=== PATIENT | female | born 1970 | race Two or more races ===

== ENCOUNTER 2025-07-23 14:41 | Inpatient (IN) | payer MEDICAID, OTHER ==
[~2025-07-23] VITALS: Ht 165.1 cm; Wt 78.5 kg
[2025-07-23 18:16] LABS: Hemoglobin 11.2 g/dL (12.2-16.2); Mean Corpuscular Hemoglobin 21.0 pg (28.0-32.0); Nucleated Red Blood Cells % 0.0 %
[2025-07-23 18:17] LABS: Hematocrit 36.7 % (36.0-46.0); Mean Corpuscular Volume 68.6 fL (80.0-100.0)
[2025-07-23 18:25] LABS: Chloride 106 mmol/L (98-107); Potassium 4.2 mmol/L (3.5-5.1); Sodium 142 mmol/L (136-145)
[2025-07-23 18:26] LABS: Anion Gap 11 (5-15); Calcium 10.0 mg/dL (8.7-10.4); Carbon Dioxide 25 mmol/L (20-31)
[2025-07-23 18:31] LABS: BUN/Creatinine Ratio 19.4 (10.0-20.0); Blood Urea Nitrogen 14 mg/dL (9-23)
[2025-07-23 18:34] LABS: Glucose 147 mg/dL (74-106)
--- NOTE | 2025-07-23 18:53 | DVH ---
CHEST RADIOGRAPH Indication: cp Technique: Single frontal view of the chest was obtained Comparison: None FINDINGS: Lines and Tubes: None Lungs: No focal consolidation. Pleura: No effusion. No pneumothorax. Cardiomediastinal contours: Unremarkable Bones: No acute osseous abnormality. IMPRESSION: 1. No acute cardiopulmonary disease.
[2025-07-24] VITALS (7 sets, daily range): BP systolic 121–130; BP diastolic 50–81; PULSE 81–92; RESP 16–18; TEMP 97.9–98.4; O2SAT 99–100
--- NOTE | 2025-07-24 00:12 | ED.PDOC ---
HPI Comments 54-year-old female who came to ER for chest pains. Patient has history of type 2 diabetes. States she woke up this morning with right-sided chest pains, constant, persistent, aching, radiating to her neck. Persistence of chest pains prompted patient to come to the ER. 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 Family History Family History: Reviewed,noncontributory to illness Social History Smoker: Non-Smoker Alcohol: Denies ETOH Use Drugs: Denies Drug Use Lives In: Home Constitutional: denies: chills, diaphoresis, fatigue, fever, malaise, sweats, weakness, others EENTM: denies: blurred vision, double vision, ear bleeding, ear discharge, ear drainage, ear pain, ear ringing, eye pain, eye redness, hearing loss, mouth pain, mouth swelling, nasal discharge, nose bleeding, nose congestion, nose pain, photophobia, tearing, throat pain, throat swelling, voice changes, others Respiratory: denies: cough, hemoptysis, orthopnea, SOB at rest, shortness of breath, SOB with excertion, stridor, wheezing, others Cardiovascular: reports: chest pain; denies: dizzy spells, diaphoresis, Dyspnea on exertion, edema, irregular heart beat, left arm pain, lightheadedness, palpitations, PND, syncope, others Gastrointestinal: denies: abdomen distended, abdominal pain, blood streaked bowels, constipated, diarrhea, dysphagia, difficulty swallowing, hematemesis, melena, nausea, poor appetite, poor fluid intake, rectal bleeding, rectal pain, vomiting, others Genitourinary: denies: abnormal vagina bleeding, burning, dyspareunia, dysuria, flank pain, frequency, hematuria, incontinence, pain, , vagina discharge, urgency, others Neurological: denies: dizziness, fainting, headache, left sided numbness, left sided weakness, numbness, paresthesia, pre-existing deficit, right sided numbness, right sided weakness, seizure, speech problems, tingling, tremors, weakness, others Musculoskeletal: denies: back pain, gout, joint pain, joint swelling, muscle pain, muscle stiffness, neck pain, others Integumetry: denies: bruises, change in color, change in hair/nails, dryness, laceration, lesions, lumps, rash, wounds, others Allergic/Immunocompromised: denies: Difficulty Healing, Frequent Infections, Hives, Itching, others Hematologic/Lymphatic: denies: anemia, blood clots, easy bleeding, easy bruising, swollen glands, others Endocrine: denies: excessive hunger, excessive sweating, excessive thirst, excessive urination, flushing, intolerance to cold, intolerance to heat, unexplained weight gain, unexplained weight loss, others Psychiatric: denies: anxiety, bipolar disorder, depression, hopeless, panic disorder, schizophrenia, sleepless, suicidal, others Physical Exam General Appearance: No Apparent Distress, Normal HEENT: Normal ENT Inspection, Pharynx Normal, TMs Normal Neck: Full Range of Motion, Non-Tender, Normal, Normal Inspection Respiratory: Chest Non-Tender, Lungs Clear, No Accessory Muscle Use, No Respiratory Distress, Normal Breath Sounds Cardiovascular: No Edema, No JVD, No Murmur, No Gallop, Normal Peripheral Pulses, Regular Rate/Rhythm Breast Exam: Deferred Gastrointestinal: No Organomegaly, Non Tender, No Pulsatile Mass, Normal Bowel Sounds, Soft Genitalia: Deferred Pelvic: Deferred Rectal: Deferred Extremities: No calf tenderness, Normal capillary refill, Normal inspection, Normal range of motion, Non-tender, No pedal edema Musculoskeletal : Apperance: Normal Neurologic: Alert, rn otolaryngology II-XII nml as Tested, No Motor Deficits, Normal Affect, Normal Mood, No Sensory Deficits Cerebellar Function: Normal Reflexes: Normal Skin: Dry, Normal Color, Warm Lymphatic: No Adenopathy Was a procedure done? Was a procedure done?: No CP Differential Dx Differential Diagnosis: Angina, Anxiety / Panic Attack Differential Diagnosis: Angina, Chest Wall Pain, Costochondritis, Esophageal reflux/spasm, Gastritis, Myocardial Infarction X-Ray, Labs, Meds, VS Vital Signs Date Time Temp Pulse Resp B/P (MAP) Pulse Ox O2 Delivery O2 Flow Rate FiO2 07/23/25 14:48 83 07/23/25 14:45 98.4 85 18 102/41 99 98.4 Lab Test 07/23/25 19:07 07/23/25 18:05 07/23/25 15:07 Range/Units Troponin I High Sensitivity < 3 L < 3 L </=34 ng/L White Blood Count 8.1 4.4-10.8 10^3/uL Red Blood Count 5.34 H 4.0-5.20 10^6/uL Hemoglobin 11.2 L 12.2-16.2 g/dL Hematocrit 36.7 36.0-46.0 % Mean Corpuscular Volume 68.6 L 80.0-100.0 fL Mean Corpuscular Hemoglobin 21.0 L 28.0-32.0 pg Mean Corpuscular Hemoglobin Concent 30.6 L 32.0-36.0 g/dL Red Cell Distribution Width 17.0 H 11.8-14.3 % Platelet Count 351 140-450 10^3/uL Mean Platelet Volume 8.6 6.9-10.8 fL Neutrophils (%) (Auto) 70.4 37.0-80.0 % Lymphocytes (%) (Auto) 21.3 10.0-50.0 % Monocytes (%) (Auto) 6.0 0.0-12.0 % Eosinophils (%) (Auto) 1.5 0.0-7.0 % Basophils (%) (Auto) 0.8 0.0-2.0 % Neutrophils # (Auto) 5.7 1.6-8.6 10 ^3/uL Lymphocytes # (Auto) 1.7 0.4-5.4 10 ^3/uL Monocytes # (Auto) 0.5 0-1.3 10 ^3/uL Eosinophils # (Auto) 0.1 0-0.8 10 ^3/uL Basophils # (Auto) 0.1 0-0.2 10 ^3/uL Nucleated Red Blood Cells 0.0 % Sodium Level 142 136-145 mmol/L Potassium Level 4.2 3.5-5.1 mmol/L Chloride Level 106 98-107 mmol/L Carbon Dioxide Level 25 20-31 mmol/L Anion Gap 11 5-15 Blood Urea Nitrogen 14 9-23 mg/dL Creatinine 0.72 0.550-1.02 mg/dL Glomerular Filtration Rate Calc 100 >90 mL/min BUN/Creatinine Ratio 19.4 10.0-20.0 Serum Glucose 147 H 74-106 mg/dL Calcium Level 10.0 8.7-10.4 mg/dL POC Glucose 202 H 70-106 mg/dl Time of 1ST Reevaluation: 00:09 Reevaluation 1ST: Unchanged Patient Education/Counseling: Diagnosis, Treatment Family Education/Counseling: No Family Present Comments This is a diabetic patient with history of hypertension who was woken up by right-sided chest pain. Patient has never had chest pain before she also reports the pain radiates to the the posterolateral side of the right neck. Cardiac workup is negative however I am suspicious for unstable angina. Patient will be admitted for further cardiac workup SEPSIS Sepsis Screen Date sepsis recognized/suspect: Jul 23, 2025 Time Sepsis recognized/suspect: 1455 Recent Procedure: No On Antibiotic Therapy: No Respiratory Rate >20: No Heart Rate >90: No Temp<36 C (96.8 F) or >38.3 C: No SBP <90 or MAP <65 mmHG: No New Acute Mental Status Change: No Is the patient on CPAP, BIPAP,: No Physician Orders Electrocardigram (07/23/25 17:17) Chest Portable (07/23/25 17:58) Electrocardigram (07/23/25 17:58) Urinalysis (07/23/25 17:58) Electrocardigram (07/23/25 18:58) Electrocardigram (07/23/25 20:58) Vital Signs Date Time Temp Pulse Resp B/P (MAP) Pulse Ox O2 Delivery O2 Flow Rate FiO2 07/23/25 14:48 83 07/23/25 14:45 98.4 85 18 102/41 99 98.4 Laboratory Tests Test 07/23/25 18:05 White Blood Count 8.1 10^3/uL (4.4-10.8) Departure 1 Departure Time of Disposition: 00:17 Impression: Primary Impression: Unstable angina Disposition: 09 ADMITTED INPATIENT Admit to: Tele Condition: Serious Discharged With: Self Critical Care Note Critical Care Time?: Yes (55 min-critical care time only) Critical care comment: Due to concerns for patients condition deteriorating, the care required my highest level of attention and readiness to intervene. I assessed the patient, reviewed the medical records, ordered the appropriate tests and treatments, then reassessed for results and responsiveness. I communicated with medical personnel and consultants and formulated a plan of care. Total critical care time excludes any procedures Stability Stability form required: No Heart Score Heart Score: Heart Score Response (Comments) Value History Slightly Suspicious 0 EKG Repolarization Disturb 1 Age 45-64 1 Risk Factors 1 or 2 risk factors 1 Troponin Normal limit 0 Total 3 I personally scribed for YOEL VILLALPANDO MD ([email or web address]) on 07/24/25 at 00:12. Electronically submitted by Yaakov Barraza ([email or web address]). YOEL VILLALPANDO MD Jul 24, 2025 00:12
[2025-07-24 05:43] LABS: Urine Protein, UAD Negative (Negative)
[2025-07-24] MEDS ORDERED: DEXTROSE (50%) 50ML SYRG IV PRN ×2 (07:30→15:15)
[2025-07-24] MEDS ORDERED: PROP1TAB51 PO (09:21)
[2025-07-24] MEDS ORDERED: METF-370 PO (09:21)
[2025-07-24] MEDS ORDERED: FAMO-12 PO (09:21)
[2025-07-24] MEDS ORDERED: DAPA1TAB4 PO (09:21)
[2025-07-24] MEDS ORDERED: ATOR-507 PO (09:21)
[2025-07-24] MEDS: ATORVASTATIN 20 MG TAB PO ONE (09:27)
--- NOTE | 2025-07-24 11:15 | DVHSR ---
APPROVED REPORT EXAM: Two-dimensional and M-mode echocardiogram with Doppler and color Doppler. Blood Pressure: 124/66 mmHg INDICATION Chest Pain RISK FACTORS Height: 5'5", Weight: 180 DIMENSIONS LVDd 4.9 (3.8-5.7cm) LA (2D) 3.5 (1.9-4.0cm) Aortic Root 3.4 (2.0-3.7cm) LVDs 2.9 (2.5-4.0cm) LA (MM) (1.9-4.0cm) Aortic Cusp Exc 1.8 (1.5-2.0cm) EF (%) 60.0 (55-70%) Rt. Atrium 3.8 (1.9-4.0cm) Asc. Aorta cm IVSd 0.8 (0.7-1.1cm) RV (D) 3.7 (1.8-2.4cm) PWd 0.7 (0.7-1.1cm) Mitral Valve Mitral Mitral Stenosis E wave 1.04m/s MV Mean GR. mmHg A wave 1.13m/s MV Peak GR. mmHg E/A ratio 0.9 2D MVA cm2 DECEL Time 250ms PRESS 1/2 Time ms Aortic Valve Aortic Valve Aortic Stenosis V1 1.23m/s AO Mean GR. 6mmHg V2 1.90m/s AO Peak GR. 14mmHg LVOT Diameter 1.8 (1.8-2.4cm) Doppler KENDALL 1.65cm2 Pulmonic Valve V2 1.18m/s Tricuspid Valve TR Velocity 2.71m/s RVSP 27mmHg Conclusion 1)Normal right and left ventricule systolic function with estimated LV ejection fraction of 60%. normal LV wall motion 2)Trace mitral regurgitation 3)Mild tricuspid regrgitation 4)Elevated right ventricular systolic [id number] mmHg suggestive of possible pulmonary HTN
--- NOTE | 2025-07-24 12:14 | DVHINCON2 ---
Date Seen: Jul 24, 2025 Referring Physician Laura Reason for Consultation Chest Pain History of Present Illness 54-year-old female with PMH for HTN, diabetes, HLD, previous smoker, presents to the hospital with chest pain. Patient states she was woken by sharp pain to her right side, radiating up her right neck right arm ache at times pressure in nature, movement made pain worse, was unsure if possible musculoskeletal or something else going on in therefore decided come to the hospital. Upon evaluation in the ER patient found to have negative troponin x2, EKG reviewed and shows sinus rhythm at 83 beats per minute, no acute ST and T-wave abnormality noted. Patient is worried about any type of chest pain has father in his 40s from heart attack as well as sibling also has cardiac issues at a younger age. 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 Allergies: Coded Allergies: NO KNOWN ALLERGIES (Unverified , 07/23/25) Home Meds Reported Medications Propranolol HCl (Propranolol Hydrochloride) 10 Mg Tab, 10 MG PO BID, TAB 07/24/25 Famotidine (Famotidine) 20 Mg Tab, 40 MG PO DAILY for 30 Days, MG 07/24/25 Atorvastatin Calcium (Lipitor) 40 Mg Tab, 1 TAB PO QPM, #90 TAB 1 Refill 07/24/25 Dapagliflozin Propanediol (Farxiga) 10 Mg Tab, 5 MG PO DAILY, TAB 07/24/25 Metformin Hydrochloride (Metformin Hcl) 500 Mg Tab, 1000 MG PO BID for 30 Days, MG 07/24/25 Current Medications Current Medications Medications (Trade) Dose Ordered Sig/Nigel Route PRN Reason Start Time Stop Time Status Last Admin Aspirin 81 mg DAILY PO 07/25/25 10:00 Atorvastatin Calcium (Lipitor) 80 mg HS PO 07/25/25 22:00 Diagnostic Test (Pha) (Accu-Chek Comfort Curve T) 1 strip Q6HR 07/24/25 12:00 Insulin Human Regular (InsuLIN R) Q6HR SC 07/24/25 12:00 Dextrose 50 ml UD PRN IV Blood Sugar LESS THAN 60 07/24/25 07:30 Review of Systems Constitutional: No: Fever, Chills, Sweats, Weakness, Malaise, Other Eyes: No: Pain, Vision change, Conjunctivae inflammation, Eyelid inflammation, Other, Redness ENT: No: Ear pain, Ear discharge, Nose pain, Nose discharge, Nose congestion, Mouth pain, Mouth swelling, Throat pain, Throat swelling, Other Respiratory: No: Cough, Dry, Shortness of breath, SOB with exertion, Wheezing, Hemoptysis, Pleuritic Pain, Sputum, Wheezing, Other Cardiovascular: ; No: Chest Pain Palpitations, Orthopnea, Paroxysmal Noc. Dyspnea, Edema, Lt Headedness, Other Gastrointestinal: No: Nausea, Vomiting, Abdominal Pain, Diarrhea, Constipation, Melena, Hematochezia, Other Genitourinary: No Dysuria, No Frequency, No Incontinence, No Hematuria, No Retention, No Other Musculoskeletal: neck pain; No: other, shoulder pain, arm pain, back pain, hand pain, leg pain, foot pain Skin: No: Rash, Lesions, Jaundice, Bruising, Other Neurological: Other (Dizziness, headache.); No: Weakness, Numbness, Incoordination, Change in speech, Confusion, Seizures Vital Signs Vital Signs Date Time Temp Pulse Resp B/P (MAP) Pulse Ox O2 Delivery O2 Flow Rate FiO2 07/24/25 08:11 Room Air* 0 21 07/24/25 08:11 97.9 87 18 121/50 (73) 100 97.9 Physical Exam General appearance: Patient is well-developed, well-nourished, in no acute distress. HEENT: Exam shows: Normocephalic, atraumatic, PERRLA, EOMI Neck: Supple, no bruits Chest: Equal chest excursion bilaterally. Breath sounds normal-no rales or wheezes. Heart: Rhythm: Regular rate; no murmur or gallop Abdomen: Exam shows: Soft, nontender, nondistended Musculoskeletal: No clubbing, no cyanosis, no lower extremity edema Dermatology: Skin warm, moist. Neurological: Exam shows: Alert and oriented x4, normal speech Available prior records, labs, EKG, rhythm strips reviewed and interpreted Labs/Diagnostic Data Labs Test 07/24/25 07:40 07/24/25 05:21 07/23/25 19:07 07/23/25 18:05 Range/Units Thyroid Stimulating Hormone (TSH) 0.03 L 0.55-4.78 uIU/mL Urine Color Light-yellow Yellow Urine Clarity Clear Clear Urine pH 5.5 5.0-9.0 Urine Specific [place] 1.044 H 1.001-1.035 Urine Protein Negative Negative Urine Ketones 2+ H Negative Urine Blood Negative Negative /uL Urine Nitrite 2+ H Negative Urine Bilirubin Negative Negative Urine Urobilinogen Normal Negative mg/dL Urine Leukocyte Esterase Negative Negative /uL Urine RBC 1 0 - 4 /hpf Urine Microscopic WBC 4 0-5 /HPF Urine Squamous Epithelial Cells Few <5 /hpf Urine Bacteria Few H None Seen /hpf Urine Glucose 4+ H Normal mg/dL Troponin I High Sensitivity < 3 L </=34 ng/L White Blood Count 8.1 4.4-10.8 10^3/uL Red Blood Count 5.34 H 4.0-5.20 10^6/uL Hemoglobin 11.2 L 12.2-16.2 g/dL Hematocrit 36.7 36.0-46.0 % Mean Corpuscular Volume 68.6 L 80.0-100.0 fL Mean Corpuscular Hemoglobin 21.0 L 28.0-32.0 pg Mean Corpuscular Hemoglobin Concent 30.6 L 32.0-36.0 g/dL Red Cell Distribution Width 17.0 H 11.8-14.3 % Platelet Count 351 140-450 10^3/uL Mean Platelet Volume 8.6 6.9-10.8 fL Neutrophils (%) (Auto) 70.4 37.0-80.0 % Lymphocytes (%) (Auto) 21.3 10.0-50.0 % Monocytes (%) (Auto) 6.0 0.0-12.0 % Eosinophils (%) (Auto) 1.5 0.0-7.0 % Basophils (%) (Auto) 0.8 0.0-2.0 % Neutrophils # (Auto) 5.7 1.6-8.6 10 ^3/uL Lymphocytes # (Auto) 1.7 0.4-5.4 10 ^3/uL Monocytes # (Auto) 0.5 0-1.3 10 ^3/uL Eosinophils # (Auto) 0.1 0-0.8 10 ^3/uL Basophils # (Auto) 0.1 0-0.2 10 ^3/uL Nucleated Red Blood Cells 0.0 % Sodium Level 142 136-145 mmol/L Potassium Level 4.2 3.5-5.1 mmol/L Chloride Level 106 98-107 mmol/L Carbon Dioxide Level 25 20-31 mmol/L Anion Gap 11 5-15 Blood Urea Nitrogen 14 9-23 mg/dL Creatinine 0.72 0.550-1.02 mg/dL Glomerular Filtration Rate Calc 100 >90 mL/min BUN/Creatinine Ratio 19.4 10.0-20.0 Serum Glucose 147 H 74-106 mg/dL Calcium Level 10.0 8.7-10.4 mg/dL Test 07/23/25 15:07 Range/Units POC Glucose 202 H 70-106 mg/dl Assessment * Chest Pain- Atypical. Troponins negative. EKG negative for acute ischemic changes. Continue aspirin and statin. Follow up ECHO with normal EF. Heart score 4. Plan for Stress test in am. NPO after midnight. * HTN - stable, continue monitoring. may restart home meds if needed. * HLD - statin * Diabetes - per primary team * Palpitations - On propranolol at home. Continue tele monitoring. Plan for outpatient cardiology follow up for event monitoring. Case Discussed with Dr Velez. CP atypical. EKG negative for acute ischemic changes. Normal EF on ECHO. Given heart score of 4 and significant family cardiac history patient to undergo stress test in am. NPO after midnight. Critical care, time spent: 38 minutes This medical document was created using an electronic medical record system with voice recognition software and computerized dictation system. Although this document has been carefully reviewed, there might still be some phonetic and typographical errors. Occasional wrong-word or ``sound-alike substitutions may have occurred due to the inherent limitations of voice recognition software. These areas are purely typographical due to imperfections of the software programs and do not reflect any compromise in the patient's medical care. Please read the chart carefully and recognize, using context, where these substitutions have occurred. Thank you for allowing me to participate in the management of this patient. The treatment plan was discussed with and agreed upon by patient/family including requesting consultants and ordering of imaging/procedures. Plan discussed with: Patient NYHA Physical activity limitations: Class1(None)absent sob, Date of Service: Jul 24, 2025 Billing Provider: HUGH SORIANO [facility] Cardiology Common Codes: 57767-[id number] INP/OBS CARE (High), [id number] CARE 30-[address] [facility] Jul 24, 2025 12:14
[2025-07-24] MEDS: ACCU-CHEK COMFORT CURVE STRIP VI SCH ×2 (12:31→18:18)
[2025-07-24] MEDS: InsuLIN REG 1unit/0.01ml Soln (100units/ml) SC SCH ×2 (12:33→18:19)
--- NOTE | 2025-07-24 14:12 | DVHPN2 ---
Reviewed: Care Plan, H&P, Labs, Medications, Previous Orders, Radiology Changes from previous H/P or p: No Changes General: Per HPI Objective Vitals Vital Signs Date Time Temp Pulse Resp B/P (MAP) Pulse Ox O2 Delivery O2 Flow Rate FiO2 07/24/25 08:11 Room Air* 0 21 07/24/25 08:11 97.9 87 18 121/50 (73) 100 97.9 Medications Current Medications Medications Dose Ordered Sig/Nigel Route Start Time Stop Time Status Last Admin Dose Admin Aspirin 81 mg DAILY PO 07/25/25 10:00 Atorvastatin Calcium 80 mg HS PO 07/25/25 22:00 Diagnostic Test (Pha) 1 strip Q6HR 07/24/25 12:00 07/24/25 12:31 1 STRIP Insulin Human Regular Q6HR SC 07/24/25 12:00 07/24/25 12:33 4 UNITS Dextrose 50 ml UD PRN IV 07/24/25 07:30 Laboratory Results Laboratory Tests 07/23/25 18:05 Chemistry Test 07/23/25 18:05 Calcium Level 10.0 mg/dL (8.7-10.4) HgA1c, TSH Test 07/24/25 07:40 Thyroid Stimulating Hormone (TSH) 0.03 uIU/mL (0.55-4.78) L Urinalysis Test 07/24/25 05:21 Urine Color Light-yellow (Yellow) Urine Clarity Clear (Clear) Urine pH 5.5 (5.0-9.0) Urine Specific [place] 1.044 (1.001-1.035) Urine Protein Negative (Negative) Urine Ketones 2+ (Negative) H Urine Blood Negative /uL (Negative) Urine Nitrite 2+ (Negative) H Urine Bilirubin Negative (Negative) Urine Urobilinogen Normal mg/dL (Negative) Urine Leukocyte Esterase Negative /uL (Negative) Urine RBC 1 /hpf (0 - 4) Urine Microscopic WBC 4 /HPF (0-5) Urine Squamous Epithelial Cells Few /hpf (<5) Urine Bacteria Few /hpf (None Seen) H Urine Glucose 4+ mg/dL (Normal) H Assessment/Plan Assessment/Plan 54-year-old female who came to ER for chest pains. Patient has history of type 2 diabetes. States she woke up this morning with right-sided chest pains, constant, persistent, aching, radiating to her neck. Persistence of chest pains prompted patient to come to the ER. Denies any prior history of chest pains # chest pain rule out ACS, high risk of ACS #chronic anemia # history of palpitations # history of meth # diabetes mellitus type 2 with hyperglycemia # GERD #Hypertension pending evaluation by cardiology pain control DVT prophylaxis Patient is ambulatory Code status discussed with the patient for greater than 21 minutes Full code time: >40 minutes Plan discussed with: Patient Date of Service: Jul 24, 2025 Billing Provider: CLINTON AMARAL DO Common Visit Codes: [id number] INP/OBS CARE(HIGH) CLINTON AMARAL DO Jul 24, 2025 14:12
--- NOTE | 2025-07-24 15:17 | DVHHPRES ---
History of Present Illness Resident Creating Document: YARIEL RANDOLPH RESIDENT History of Present Illness 54 year old female with past medical history of diabetes mellitus type 2 since 2012, GERD, Hypertension presented with a complaint of chest pain restarted yesterday morning and woke her from her sleep. She describes chest pain that is mostly in the right side but radiating to the left and right shoulder, increased on lying flat associated with palpitation. She also mentioned associated stomach pain and dizziness on standing from sitting position. She denied any shortness of breath. She denied any fever, chills, dizziness, headache, nausea, vomiting. 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, quit s moking 20 years ago, occasional alcohol intake, denied any other recreational drug intake Medication history Propranolol Atorvastatin Famotidine Farxiga Losartan Metformin Allergic history No known allergies Review of Systems Review of Systems As described in the HPI Allergies: Coded Allergies: NO KNOWN ALLERGIES (Unverified , 07/23/25) Medications Current Medications Medications Dose Ordered Sig/Nigel Route Start Time Stop Time Status Last Admin Dose Admin Aspirin 81 mg DAILY PO 07/25/25 10:00 Atorvastatin Calcium 80 mg HS PO 07/25/25 22:00 Diagnostic Test (Pha) 1 strip Q6HR 07/24/25 12:00 07/24/25 12:31 1 STRIP Insulin Human Regular Q6HR SC 07/24/25 12:00 07/24/25 12:33 4 UNITS Dextrose 50 ml UD PRN IV 07/24/25 07:30 Exam Vital Signs Vital Signs Date Time Temp Pulse Resp B/P (MAP) Pulse Ox O2 Delivery O2 Flow Rate FiO2 07/24/25 08:11 Room Air* 0 21 07/24/25 08:11 97.9 87 18 121/50 (73) 100 97.9 Exam Examination General Appearance: Alert, Oriented X3, Cooperative, No acute distress HEENT: EOMI Respiratory: Clear to auscultation, Normal air movement Cardiovascular: Regular rate, Normal S1, Normal S2 Abdominal: Normal bowel sounds Extremities: No cyanosis, No edema, Normal pulses, No tenderness/swelling Skin: No rashes, No breakdown Neuro: Normal speech and tone Labs/Xrays Labs Test 07/24/25 12:24 127/25 07:40 07/24/25 05:21 07/23/25 19:07 Range/Units POC Glucose 219 H 70-106 mg/dl Thyroid Stimulating Hormone (TSH) 0.03 L 0.55-4.78 uIU/mL Urine Color Light-yellow Yellow Urine Clarity Clear Clear Urine pH 5.5 5.0-9.0 Urine Specific [place] 1.044 H 1.001-1.035 Urine Protein Negative Negative Urine Ketones 2+ H Negative Urine Blood Negative Negative /uL Urine Nitrite 2+ H Negative Urine Bilirubin Negative Negative Urine Urobilinogen Normal Negative mg/dL Urine Leukocyte Esterase Negative Negative /uL Urine RBC 1 0 - 4 /hpf Urine Microscopic WBC 4 0-5 /HPF Urine Squamous Epithelial Cells Few <5 /hpf Urine Bacteria Few H None Seen /hpf Urine Glucose 4+ H Normal mg/dL Troponin I High Sensitivity < 3 L </=34 ng/L Test 07/23/25 18:05 Range/Units White Blood Count 8.1 4.4-10.8 10^3/uL Red Blood Count 5.34 H 4.0-5.20 10^6/uL Hemoglobin 11.2 L 12.2-16.2 g/dL Hematocrit 36.7 36.0-46.0 % Mean Corpuscular Volume 68.6 L 80.0-100.0 fL Mean Corpuscular Hemoglobin 21.0 L 28.0-32.0 pg Mean Corpuscular Hemoglobin Concent 30.6 L 32.0-36.0 g/dL Red Cell Distribution Width 17.0 H 11.8-14.3 % Platelet Count 351 140-450 10^3/uL Mean Platelet Volume 8.6 6.9-10.8 fL Neutrophils (%) (Auto) 70.4 37.0-80.0 % Lymphocytes (%) (Auto) 21.3 10.0-50.0 % Monocytes (%) (Auto) 6.0 0.0-12.0 % Eosinophils (%) (Auto) 1.5 0.0-7.0 % Basophils (%) (Auto) 0.8 0.0-2.0 % Neutrophils # (Auto) 5.7 1.6-8.6 10 ^3/uL Lymphocytes # (Auto) 1.7 0.4-5.4 10 ^3/uL Monocytes # (Auto) 0.5 0-1.3 10 ^3/uL Eosinophils # (Auto) 0.1 0-0.8 10 ^3/uL Basophils # (Auto) 0.1 0-0.2 10 ^3/uL Nucleated Red Blood Cells 0.0 % Sodium Level 142 136-145 mmol/L Potassium Level 4.2 3.5-5.1 mmol/L Chloride Level 106 98-107 mmol/L Carbon Dioxide Level 25 20-31 mmol/L Anion Gap 11 5-15 Blood Urea Nitrogen 14 9-23 mg/dL Creatinine 0.72 0.550-1.02 mg/dL Glomerular Filtration Rate Calc 100 >90 mL/min BUN/Creatinine Ratio 19.4 10.0-20.0 Serum Glucose 147 H 74-106 mg/dL Calcium Level 10.0 8.7-10.4 mg/dL SEPSIS Sepsis Screen Date sepsis recognized/suspect: Jul 24, 2025 Time Sepsis recognized/suspect: 735 Recent Procedure: No On Antibiotic Therapy: No Respiratory Rate >20: No Heart Rate >90: No Temp<36 C (96.8 F) or >38.3 C: No SBP <90 or MAP <65 mmHG: No New Acute Mental Status Change: No Is the patient on CPAP, BIPAP,: No Physician Orders Admit (07/24/25 07:28) Oxygen By Nasal Cannula (07/24/25 07:28) Stat Ekg For Chest Pain (07/24/25 07:28) Notify Md Of Changes From Base (07/24/25 07:28) Caisson Worker For 24 Hours (07/24/25 07:28) Emergency Dysrhythmia Protocol (07/24/25 07:28) Rhythm Strips Once Every Shift (07/24/25 07:28) * Cardiology Consult (07/24/25 07:28) Atorvastatin (Lipitor) (07/25/25 22:00) Glucose Blood (Accu-Chek Comfort Curve T (07/24/25 12:00) Insulin R (Human) (Insulin R) (07/24/25 12:00) Dextrose 50% Syringe (07/24/25 07:30) Echo 2d Mode Cardiac Dop (07/24/25 07:28) Consistent Carb(Ccho)Diabetes (07/24/25 Breakfast) Code Status (07/24/25 07:33) Aspirin Chewable Tablet (07/25/25 10:00) Vital Signs Date Time Temp Pulse Resp B/P (MAP) Pulse Ox O2 Delivery O2 Flow Rate FiO2 07/24/25 08:11 Room Air* 0 21 07/24/25 08:11 97.9 87 18 121/50 (73) 100 97.9 07/24/25 07:36 98.7 87 18 124/66 (85) 100 98.7 07/24/25 07:36 87 18 100 Room Air* 0 21 07/24/25 07:35 98.7 87 18 124/66 (85) 100 98.7 Medications Medications Dose Ordered Sig/Nigel Route Start Time Stop Time Status Last Admin Dose Admin Atorvastatin Calcium 80 mg ONCE ONCE PO 07/24/25 07:30 07/24/25 08:15 DC 07/24/25 09:27 80 MG Diagnostic Test (Pha) 1 strip Q6HR 07/24/25 12:00 07/24/25 12:31 1 STRIP Insulin Human Regular Q6HR SC 07/24/25 12:00 07/24/25 12:33 4 UNITS Assessment/Plan Assessment/Plan Assessment/plan # chest pain, rule out ACS # history of palpitations # history of meth # family history of CAD in 40s EKG Tropes Echo Cardiology evaluation Continue propranolol # diabetes mellitus type 2 Keep blood glucose between 140-180 Accu-Cheks q.6/a.c. HS Sliding scale insulin Diabetic diet: Consistent carbohydrate # GERD Continue famotidine #Hypertension Continue losartan DVT prophylaxis Patient is ambulatory Code status discussed with the patient for greater than 21 minutes Full code Case discussion with Dr. Berrios Plan discussed with: Patient, Other My Orders Orders - YARIEL RANDOLPH RESIDENT Procedure Category Date Status Time Admit ADMIT 07/24/25 Transmitted 07:28 Oxygen By Nasal RT 07/24/25 Transmitted Cannula 07:28 Stat Ekg For Chest BONI 07/24/25 In Process Pain 07:28 Notify Of Changes BONI 07/24/25 In Process From Base 07:28 Caisson Worker For BONI 07/24/25 In Process 24 Hours 07:28 Emergency Dysrhythmia BONI 07/24/25 In Process Protocol 07:28 Rhythm Strips Once BONI 07/24/25 In Process Every Shift 07:28 * Cardiology Consult CONS 07/24/25 Transmitted 07:28 Atorvastatin (Lipitor) PHA 07/25/25 In Process 22:00 Glucose Blood PHA 07/24/25 In Process (Accu-Chek Comfort 12:00 Insulin R (Human) PHA 07/24/25 In Process (Insulin R) 12:00 Dextrose 50% Syringe PHA 07/24/25 In Process 07:30 Echo 2d Mode Cardiac US 07/24/25 Resulted DOP 07:28 Consistent DIET 07/24/25 [facility]Diabetes Breakfast Code Status CODE 07/24/25 Transmitted 07:33 Aspirin Chewable PHA 07/25/25 In Process Tablet 10:00 Visit Coding STANDARD RES Billing Provider: ARNOLDO BERRIOS MD Date of Service if different f: Jul 24, 2025 Common Visit Codes: [id number] INP/OBS CARE (HIGH) Secondary Visit Codes: 44125-[id number] CARE PLAN 30 MINUTES YARIEL RANDOLPH RESIDENT Jul 24, 2025 15:17
[2025-07-24 15:50] LABS: Triglycerides 85 mg/dL (< 150)
[2025-07-24 15:52] LABS: Cholesterol 165 mg/dL (< 200); HDL Cholesterol 59 mg/dL (40-59)
[2025-07-24 16:10] LABS: Free T3 3.9 pg/mL (2.3-4.2); Free T4 (Free Thyroxine) 1.29 ng/dL (0.89-1.76)
[2025-07-24] MEDS: PROPRANOLOL HCL 20 MG TAB PO SCH (21:42)
[2025-07-24] MEDS: ATORVASTATIN 20 MG TAB PO SCH (21:43)
[2025-07-25] VITALS (8 sets, daily range): BP systolic 103–122; BP diastolic 65–74; PULSE 71–94; RESP 16–18; TEMP 97.8–98.5; O2SAT 98–100
[2025-07-25 07:01] LABS: Hematocrit 36.4 % (36.0-46.0); Hemoglobin 11.2 g/dL (12.2-16.2); Mean Corpuscular Hemoglobin 21.1 pg (28.0-32.0); Mean Corpuscular Volume 68.3 fL (80.0-100.0); Nucleated Red Blood Cells % 0.1 %
[2025-07-25 07:14] LABS: Anion Gap 8 (5-15); Carbon Dioxide 27 mmol/L (20-31); Potassium 4.4 mmol/L (3.5-5.1); Sodium 143 mmol/L (136-145)
[2025-07-25 07:15] LABS: Calcium 9.5 mg/dL (8.7-10.4)
[2025-07-25 07:20] LABS: BUN/Creatinine Ratio 20.6 (10.0-20.0); Blood Urea Nitrogen 13 mg/dL (9-23)
[2025-07-25 07:21] LABS: Magnesium 1.9 mg/dL (1.6-2.6)
[2025-07-25 07:22] LABS: Chloride 108 mmol/L (98-107); Glucose 149 mg/dL (74-106)
[2025-07-25] MEDS: REGADENOSON 0.4 MG/5 ML SYRG IV ONE ×3 (09:52→10:23)
[2025-07-25] MEDS ORDERED: DEXTROSE (50%) 50ML SYRG IV PRN (11:45)
--- NOTE | 2025-07-25 11:45 | DVHPN2 ---
Progress Note Date Seen: Jul 25, 2025 Medical Necessity Reason Pt with a Central, PICC or Fol: No Subjective Patient reports: No new complaints Review of Systems: HEENT:Normal, CVS:Normal, RESPIRATORY:Normal, GI:Normal, :Normal, MSK:Normal, NEURO:Normal Objective vital signs Vital Sign Date Time Temp Pulse Resp B/P (MAP) Pulse Ox O2 Delivery O2 Flow Rate FiO2 07/25/25 08:42 98.0 94 18 103/65 (78) 100 98.0 07/25/25 08:00 Room Air* 0 21 Total Intake and Output 07/24/25 07/24/25 07/25/25 15:00 23:00 07:00 Intake Total 380 ml Balance 380 ml medications Current Medications Medications Dose Ordered Sig/Nigel Route Start Time Stop Time Status Last Admin Dose Admin Aspirin 81 mg DAILY PO 07/25/25 10:00 Famotidine 40 mg DAILY PO 07/25/25 10:00 Atorvastatin Calcium 40 mg HS PO 07/24/25 22:00 07/24/25 21:43 40 MG Propranolol HCl 10 mg BID PO 07/24/25 22:00 07/24/25 21:42 10 MG Diagnostic Test (Pha) 1 strip Q6HR 07/24/25 18:00 07/25/25 06:03 1 STRIP Insulin Human Regular Q6HR SC 07/24/25 18:00 07/24/25 18:19 4 UNITS Dextrose 50 ml UD PRN IV 07/24/25 15:15 Examination: GENERAL:Normal, HEENT:Normal, NECK:Normal, LUNGS:Normal, CVS:Normal, ABDOMEN:Normal, MSK:Normal, SKIN:Normal, NEURO:Normal, :Normal laboratory and microbiology Laboratory Tests 07/25/25 06:11 Test 07/25/25 06:11 Range/Units Serum Glucose 149 H 74-106 mg/dL Problem List/Assessment/Plan Problem List/Assessment/Plan #1 chest pain ?cad: stress test today #2 ?uti: iv rocephin #3 dm-uncontrolled: ssi #4 htn #5 obesity #6 hyperlipidemia #7 h/o drug/tobacco abuse advance care planning- full code- time spent 18mins Plan discussed with: Patient Date of Service: Jul 25, 2025 Billing Provider: LUCILA MORALES MD Common Visit Codes: [id number] INP/OBS CARE(HIGH) Secondary Visit Codes: [id number] CARE PLAN 30 MINUTES LUCILA MORALES MD Jul 25, 2025 11:44
[2025-07-25] MEDS: FAMOTIDINE 20 MG TAB PO SCH (11:50)
[2025-07-25] MEDS: InsuLIN REG 1unit/0.01ml Soln (100units/ml) SC SCH ×3 (12:20→21:19)
[2025-07-25] MEDS: KETOROLAC TROMETH 30 MG/ML 1ML VIAL IV ONE (12:38)
--- NOTE | 2025-07-25 13:23 | DVHSR ---
APPROVED REPORT Exam: Nuclear Stress Test BMI: 0 Stress Test Details HR Max Heart Rate (APMHR): 167.900834 bpm Target HR (85% APMHR): 141.502538 bpm BP ECG Stress ECG Conclusion lvef 66% normal perfusion no severe ischemia noted NM EXAM: Myocardial Perfusion REST/STRESS Imaging Protocol: Rest Tc-99m/Stress Tc-99m 1 day Resting Data Rest SPECT myocardial perfusion imaging was performed in supine position 60 minutes following the intravenous injection of 9.1 mCi of Tc-99m Sestamibi. Time of rest injection: 08:00 Date: 07/25/2025 Time of rest imagin:00 Date: 07/25/2025 Administration Route: IV Administration Site: Left Arm Pharmacologic Stress Pharmacologic stress test was performed by injecting Regadenoson 0.4 mg IV push followed by the intravenous injection of 29.0 mCi of Tc-99m Sestamibi. Time of stress injection: 10:20 Date: 07/25/2025 Time of stress imagin:20 Date: 07/25/2025 Administration Route: IV Administration Site: Left Arm Gated Stress SPECT was performed 60 minutes after stress injection. The images were gated to evaluate regional wall motion and calculate left ventricular ejection fraction. Stress only was performed in the Supine position. Nuclear Conclusion Nuclear Findings: negative for ischemia lvef 66% normal perfusion no severe ischemia noted
--- NOTE | 2025-07-25 14:20 | DVHPN2 ---
Consult Progress Note Date Seen: Jul 25, 2025 Subjective Review of Systems: CVS:Normal, RESPIRATORY:Normal, NEURO:Normal Objective vital signs Vital Sign Date Time Temp Pulse Resp B/P (MAP) Pulse Ox O2 Delivery O2 Flow Rate FiO2 07/25/25 11:49 101 131/76 07/25/25 08:42 98.0 18 100 98.0 07/25/25 08:00 Room Air* 0 21 Total Intake and Output 07/24/25 07/24/25 07/25/25 15:00 23:00 07:00 Intake Total 380 ml Balance 380 ml medications Current Medications Medications Dose Ordered Sig/Nigel Route Start Time Stop Time Status Last Admin Dose Admin Aspirin 81 mg DAILY PO 07/25/25 10:00 07/25/25 11:45 81 MG Famotidine 40 mg DAILY PO 07/25/25 10:00 07/25/25 11:50 40 MG Atorvastatin Calcium 40 mg HS PO 07/24/25 22:00 07/24/25 21:43 40 MG Propranolol HCl 10 mg BID PO 07/24/25 22:00 07/25/25 11:49 10 MG Diagnostic Test (Pha) 1 strip ACHS 07/25/25 17:00 Insulin Human Regular HS SC 07/25/25 22:00 Insulin Human Regular AC SC 07/25/25 17:00 Dextrose 50 ml UD PRN IV 07/25/25 11:45 Ceftriaxone Sodium 50 ml @ 100 mls/hr DAILY@09 IV 07/26/25 09:00 Examination: LUNGS:Normal, CVS:Normal, NEURO:Normal laboratory and microbiology Laboratory Tests 07/25/25 06:11 Test 07/25/25 06:11 Range/Units Serum Glucose 149 H 74-106 mg/dL Problem List/Assessment/Plan Problem List/Assessment/Plan (Dr. Velez) * Chest Pain- Atypical likely musculoskeletal. Troponins levels are negative. EKG negative for acute ischemic changes. Transthoracic echocardiogram with normal LVEF. Cardiolite stress test is negative for ischemia. Consider NSAIDs * Palpitations - On propranolol at home. Continue tele monitoring. Outpatient event monitor. No tachyarrhythmias identified during admission * HTN - stable, continue monitoring. may restart home meds if needed. * HLD - statin * Diabetes - per primary team There is no further cardiac work-up indicated at this time. Kindly call with any questions or concerns. Thank you for allowing me to participate in the management of this patient. This medical document was created using an electronic medical record system with voice recognition software and computerized dictation system. Although this document has been carefully reviewed, there might still be some phonetic and typographical errors. Occasional wrong-word or ``sound-alike substitutions may have occurred due to the inherent limitations of voice recognition software. These areas are purely typographical due to imperfections of the software programs and do not reflect any compromise in the patient's medical care. Please read the chart carefully and recognize, using context, where these substitutions have occurred. Plan discussed with: Patient, Other Date of Service: Jul 25, 2025 Billing Provider: OMEGA ERWIN Cardiology Common Codes: 62438-YBOAZCHOQU [facility] CARE(High OMEGA ERWIN Jul 25, 2025 14:20
[2025-07-25] MEDS: ACCU-CHEK COMFORT CURVE STRIP VI SCH (18:06)
[2025-07-25] MEDS ORDERED: ATORVASTATIN 20 MG TAB PO SCH (22:00)
[2025-07-26 00:55] VITALS: BP 107/55; PULSE 71; RESP 16; TEMP 97.8; O2SAT 100
[2025-07-26 05:00] VITALS: BP 121/59; PULSE 82; RESP 18; TEMP 97.7; O2SAT 100
[2025-07-26 08:00] VITALS: PULSE 71; PULSE 83; RESP 20; O2SAT 100
[2025-07-26 09:00] VITALS: BP 114/71; PULSE 83; RESP 20; TEMP 98; O2SAT 100
[2025-07-26 13:00] VITALS: BP 121/62; PULSE 77; RESP 20; TEMP 98; O2SAT 99
--- NOTE | 2025-07-26 14:16 | ECG ---
[facility] Test Date: 2025-07-23 Test Time: 14:48:53 Pat Name: UMESH LARIOS Department: Room: [facility]0T B Gender: F Binder Technician: BEVERLEY : 1970 Requested By: KEISHA PRINGLE Order Number: [id number] Reading MD: Farooq Tanner Measurements Intervals [place] Rate: 83 P: 56 MA: 130 QRS: 50 QRSD: 84 T: 22 QT: 349 QTc: 410 Interpretive Statements Sinus rhythm Ventricular premature complex Low voltage, precordial leads Electronically Signed On 07-28-2025 19:07:56 PST by Farooq Tanner Please click the below link to view image of tracing.
--- NOTE | 2025-07-26 16:05 | DVHDS2 ---
Discharge Summary Date of Admission Jul 24, 2025 at 07:28 Date of Discharge: Jul 26, 2025 Labs/Diagnostic Data: Laboratory Results Test 07/26/25 11:17 07/25/25 06:11 07/24/25 07:40 07/24/25 05:21 POC Glucose 204 mg/dl (70-106) White Blood Count 4.8 10^3/uL (4.4-10.8) Red Blood Count 5.33 10^6/uL (4.0-5.20) Hemoglobin 11.2 g/dL (12.2-16.2) Hematocrit 36.4 % (36.0-46.0) Mean Corpuscular Volume 68.3 fL (80.0-100.0) Mean Corpuscular Hemoglobin 21.1 pg (28.0-32.0) Mean Corpuscular Hemoglobin Concent 30.8 g/dL (32.0-36.0) Red Cell Distribution Width 16.8 % (11.8-14.3) Platelet Count 297 10^3/uL (140-450) Mean Platelet Volume 8.6 fL (6.9-10.8) Neutrophils (%) (Auto) 66.0 % (37.0-80.0) Lymphocytes (%) (Auto) 23.1 % (10.0-50.0) Monocytes (%) (Auto) 8.5 % (0.0-12.0) Eosinophils (%) (Auto) 1.8 % (0.0-7.0) Basophils (%) (Auto) 0.6 % (0.0-2.0) Neutrophils # (Auto) 3.2 10 ^3/uL (1.6-8.6) Lymphocytes # (Auto) 1.1 10 ^3/uL (0.4-5.4) Monocytes # (Auto) 0.4 10 ^3/uL (0-1.3) Eosinophils # (Auto) 0.1 10 ^3/uL (0-0.8) Basophils # (Auto) 0 10 ^3/uL (0-0.2) Nucleated Red Blood Cells 0.1 % Sodium Level 143 mmol/L (136-145) Potassium Level 4.4 mmol/L (3.5-5.1) Chloride Level 108 mmol/L (98-107) Carbon Dioxide Level 27 mmol/L (20-31) Anion Gap 8 (5-15) Blood Urea Nitrogen 13 mg/dL (9-23) Creatinine 0.63 mg/dL (0.550-1.02) Glomerular Filtration Rate Calc 106 mL/min (>90) BUN/Creatinine Ratio 20.6 (10.0-20.0) Serum Glucose 149 mg/dL (74-106) Calcium Level 9.5 mg/dL (8.7-10.4) Magnesium Level 1.9 mg/dL (1.6-2.6) Hemoglobin A1c 12.6 % A1C (<5.7) Triglycerides Level 85 mg/dL (< 150) Cholesterol Level 165 mg/dL (< 200) LDL Cholesterol 103 mg/dL (< 100) HDL Cholesterol 59 mg/dL (40-59) Thyroid Stimulating Hormone (TSH) 0.03 uIU/mL (0.55-4.78) Free Thyroxine (T4) Calculated 1.29 ng/dL (0.89-1.76) Free Triiodothyronine (T3) pg/mL 3.90 pg/mL (2.3-4.2) Urine Color Light-yellow (Yellow) Urine Clarity Clear (Clear) Urine pH 5.5 (5.0-9.0) Urine Specific [place] 1.044 (1.001-1.035) Urine Protein Negative (Negative) Urine Ketones 2+ (Negative) Urine Blood Negative /uL (Negative) Urine Nitrite 2+ (Negative) Urine Bilirubin Negative (Negative) Urine Urobilinogen Normal mg/dL (Negative) Urine Leukocyte Esterase Negative /uL (Negative) Urine RBC 1 /hpf (0 - 4) Urine Microscopic WBC 4 /HPF (0-5) Urine Squamous Epithelial Cells Few /hpf (<5) Urine Bacteria Few /hpf (None Seen) Urine Glucose 4+ mg/dL (Normal) Test 07/23/25 19:07 Troponin I High Sensitivity < 3 ng/L (</=34) Other Laboratory Tests 07/25/25 06:11 Brief Hx & Hospital Course: SEE DICTATED NOTE Condition at Discharge: Good Final Diagnosis/Problems List CHEST PAIN Discharge Disposition: Home Discharge Instruct/Medications Diet: Consistent carbohydrate Activity: No Restrictions, As Tolerated Follow Up/Referral: FU WITH PCP Medications: RESUME HOME MEDS Scheduled Atorvastatin Calcium (Lipitor), 1 TAB PO QPM, (Reported) Dapagliflozin Propanediol (Farxiga), 5 MG PO DAILY, (Reported) Famotidine (Famotidine), 40 MG PO DAILY, (Reported) Metformin Hydrochloride (Metformin Hcl), 1,000 MG PO BID, (Reported) Propranolol HCl (Propranolol Hydrochloride), 10 MG PO BID, (Reported) Discharge Statement: "Patient was advised to return to the ER or call 911 if any headaches, dizziness, shortness of breath, chest pain, abdominal pain, bleeding, fevers, or worsening of medical condition. Patient was counseled about treatment plan, medications, possible side effects, patientverbalized understanding. All questions were answered to the best of my ability. This discharge took greater then 30 minutes in planning, reviewing documentation, counseling the patient, and discussing with other team members." ASSESSMENT ASSESSMENT Assessment CHEST PAIN Date of Service: Jul 26, 2025 Billing Provider: LUCILA MORALES MD Common Visit Codes: 52336-YFO/OBS DISCH DAY >30min LUCILA MORALES MD Jul 26, 2025 16:05
[2025-07-26 16:15] VITALS: BP 121/62; PULSE 77; RESP 20; TEMP 98; O2SAT 99
--- NOTE | 2025-07-26 20:12 | DVHDS ---
DATE OF DISCHARGE: 07/26/2025 HISTORY OF PRESENT ILLNESS: The patient is a 54-year-old lady who is admitted with complaints of chest pain and has history of diabetes, GERD, and hypertension. HOSPITAL COURSE: The patient was seen in Cardiology consult. The patient had an echocardiogram done that showed ejection fraction of 60%. The patient had a Cardiolite stress test that was negative. The patient's hemoglobin A1c was 12.6. The patient will now be discharged home to resume her home medications and follow up with her primary. The patient has also been discussed about uncontrolled diabetes, which she will discuss with her primary care doctor. The patient has been given a glucometer with glucose strips. FINAL DIAGNOSES: * Chest pain, questionably musculoskeletal with stress test negative. * Questionable UTI. * Uncontrolled diabetes mellitus. * Hypertension. * Obesity. * Hyperlipidemia. * Previous history of drug and tobacco abuse. Time spent in discharge planning and review of plan with the patient and nursing was 38 minutes. MD IAM Winkler/ANDRE TID: [id number] RECEIPT: [id number]
== END 2025-07-26 17:45 | disposition home or self-care (01) | DRG 203 ==
LOC: ER 14:41 → OVERFLOW 07-24 07:28 → TELE-WESTW 07-24 21:10
PROVIDERS: ADMIT Internal Medicine; ATTEND Internal Medicine
DX: M94.0 Chondrocostal junction syndrome [Tietze] (principal); E11.65 Type 2 diabetes mellitus with hyperglycemia; N39.0 Urinary tract infection, site not specified; E66.9 Obesity, unspecified; I10 Essential (primary) hypertension; E78.5 Hyperlipidemia, unspecified; Z68.28 Body mass index [BMI] 28.0-28.9, adult; K21.9 Gastro-esophageal reflux disease without esophagitis; Z80.1 Family history of malignant neoplasm of trachea, bronchus and lung; Z82.49 Family history of ischemic heart disease and other diseases of the circulatory system; Z83.3 Family history of diabetes mellitus; Z87.891 Personal history of nicotine dependence; Z79.84 Long term (current) use of oral hypoglycemic drugs; Z79.899 Other long term (current) drug therapy
CPT/HCPCS: 36415; 71045; 78452; 80048; 80061; 81001; 82962; 83036; 83735; 84439; 84443; 84481; 84484; 85025; 93005; 93017; 93306; 99291; G0378; J1815; J1885